=== PATIENT | female | born 1995 | race Two or more races ===

== ENCOUNTER 2025-03-24 12:23 | Emergency (ER) | payer MEDICAID, SELFPAY ==
[2025-03-24 13:02] VITALS: BP 131/83; PULSE 81; RESP 18; TEMP 37.2; O2SAT 100; BMI 32.9
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
[2025-03-24 13:28] LABS: HCG Qualitative,Urine Negative
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
[2025-03-24 14:53] VITALS: BP 132/88; PULSE 76; RESP 18; TEMP 37.4; O2SAT 100
== END 2025-03-24 15:01 | disposition home or self-care (01) ==
PROVIDERS: Nurse Practitioner Primary Care; Emergency Provider Emergency Medicine; PCP Physician Assistant
DX: S13.4XXA Sprain of ligaments of cervical spine, initial encounter (principal); S39.012A Strain of muscle, fascia and tendon of lower back, initial encounter; V89.2XXA Person injured in unspecified motor-vehicle accident, traffic, initial encounter
CPT/HCPCS: 70450; 72125; 72131; 81025; 99284

== ENCOUNTER 2025-04-30 14:35 | Emergency (ER) | payer MEDICAID, SELFPAY ==
[2025-04-30 14:36] VITALS: BP 115/83; PULSE 100; RESP 18; TEMP 37.2; O2SAT 98; BMI 32.0
[2025-04-30 14:42] VITALS: PULSE 100; RESP 17; O2SAT 98; BMI 32.0
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
[2025-04-30 15:44] LABS: Basophils % (Auto) 0 % (0-2.5); Eosinophils % (Auto) 1 % (0-10); Hematocrit 32.6 % (36.0-46.0); Hemoglobin 11.3 g/dL (12.0-16.0); Immature Granulocytes % (Auto) 0 % (0-0); Immature Granulocytes Auto 0.02 Thou/mm3 (0.00-0.00); Lymphocytes # (Auto) 0.8 Thou/mm3 (1.0-4.8); Lymphocytes % (Auto) 9 % (10-50); Mean Corpuscular HGB Conc 34.7 g/dl (31.0-37.0); Mean Corpuscular Hemoglobin 30.2 pg (25.0-35.0); Mean Corpuscular Volume 87 fL (80-100); Monocytes # (Auto) 0.6 Thou/mm3 (0.0-0.8); Monocytes % (Auto) 7 % (0-12); Neutrophils # (Auto) 6.8 Thou/mm3 (1.8-7.7); Neutrophils % (Auto) 83 % (37-80); Nucleated Red Blood Cell % 0 /100 WBC (0); Platelet Count 224 Thou/mm3 (140-440); RDW Standard Deviation 46.3 fL (36.4-46.3); Red Blood Count 3.74 Miln/mm3 (4.00-5.20); White Blood Count 8.2 Thou/mm3 (3.6-11.0)
[2025-04-30 16:05] LABS: Alanine Aminotransferase 17 U/L (10-49); Albumin, Serum 4.4 gm/dL (3.5-5.0); Albumin/Globulin Ratio 1.9 (1.2-2.2); Alcohol, Blood Medical < 3.0 mg/dL (0-10.0); Alkaline Phosphatase 64 U/L (46-116); Anion Gap 8 (7-16); Aspartate Amino Transferase 17 U/L (0-34); BUN/Creatinine Ratio 8 Ratio (12-20); Bilirubin,Total 0.6 mg/dL (0.3-1.2); Blood Urea Nitrogen < 5 mg/dL (9-23); C-Reactive Protein < 0.5 mg/dL (0.0-0.9); Calcium 8.9 mg/dL (8.3-10.6); Calcium (Corrected) 8.9 mg/dL (8.5-10.1); Carbon Dioxide 22.8 mMol/L (20.0-31.0); Chloride 109 mMol/L (98-107); Creatinine (Component) 0.6 mg/dL (0.6-1.3); Estimated Creatinine Clearance 133.8 mL/min (>60); Globulin 2.3 gm/dL (2.3-3.5); Glucose 108 mg/dL (74-106); Osmolality,Calculated 277 (275-295); Potassium 3.6 mMol/L (3.4-5.1); Sodium 140 mMol/L (136-145); Total Protein 6.7 gm/dL (5.7-8.2); eGFR > 60 See Note
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
[2025-04-30 16:41] VITALS: BP 141/89; PULSE 83; RESP 18; TEMP 36.9; O2SAT 98
[2025-04-30 16:41] LABS: Collection Type, Urine Clean Catch
[2025-04-30] MEDS: IBUPROFEN TAB 600 MG TABLET PO (16:43)
[2025-04-30 17:19] LABS: Bilirubin,Urine Negative (Negative); Blood,Urine 3+ (Negative); Color,Urine Light-Red (Lt Yel-Yel); Glucose, Urine Negative (Negative); Ketones,Urine 1+ (Negative); Leukocyte Esterase,Urine Positive (Negative); Nitrite,Urine Negative (Negative); Protein,Urine 2+ (Neg - Trace); RBC,Urine 1596 /hpf (0-3); Specific Gravity,Urine 1.007 (1.001-1.035); Squamous Epithelial Cell,Urine 10 /hpf (0-5); Urobilinogen,Urine Negative mg/dL (0.0-1.0); WBC,Urine 76 /hpf (0-5)
[2025-04-30 17:22] LABS: HCG Qualitative,Urine Negative
[2025-04-30 17:23] LABS: Clarity,Urine Hazy (Clear/Hazy)
[2025-04-30 17:26] LABS: Sed Rate (ESR) 13 mm/hr (0-20)
[2025-04-30 17:30] LABS: Amphetamine/Methamp Scrn,U Negative (Negative); Barbiturate Screen,Urine Negative (Negative); Benzodiazepines Screen,Urine Negative (Negative); Benzoylecgonine Screen, Ur Negative (Negative); Fentanyl Screen,Urine Negative (Negative); Opiate Screen,Urine Negative (Negative); THC Screen,Urine Positive (Negative)
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
[2025-04-30 18:14] VITALS: BP 111/90; PULSE 90; RESP 16; TEMP 36.9; O2SAT 99
--- NOTE | 2025-04-30 18:42 | PD.EDADDENDU ---
Emergency Room Addendum <Tiff Moreira - Last Filed: 04/30/25 21:32> Addendum Narrative: I took over the care from Dr. Malin at 6 PM on 04/30/2025, see his notes for complete H&P and ED course. I was asked to take over this patient pending 5150 psychiatric placement. Patient was accepted to [facility] by Dr. Hampton. <Kurtis Toscano MD - Last Filed: 04/30/25 22:00> Addendum Narrative: I took over the care from Dr. Malin at 6 PM on 04/30/2025, see his notes for complete H&P and ED course. I was asked to take over this patient pending 5150 psychiatric placement. Patient was accepted to [facility] by Dr. Hampton. During my watch, the patient remained stable. Kurtis Toscano MD
--- NOTE | 2025-04-30 20:38 | PC.NURSE ---
NURSE TO NURSE REPORT VIA TELEPHONE TO DELTA WATERS FROM [facility]
[2025-04-30 23:17] VITALS: BP 114/71; PULSE 81; RESP 16; O2SAT 98
[2025-04-30 23:50] VITALS: BP 114/71; PULSE 97; RESP 18; TEMP 36.9; O2SAT 98
[2025-05-01] MEDS: NITROFURANTOIN MACRO 100 MG CAPSULE PO (00:22)
== END 2025-05-01 00:42 ==
PROVIDERS: Emergency Medicine; Emergency Provider Emergency Medicine
DX: Z04.6 Encounter for general psychiatric examination, requested by authority (principal); F29 Unspecified psychosis not due to a substance or known physiological condition; F31.9 Bipolar disorder, unspecified; M25.522 Pain in left elbow; Z75.1 Person awaiting admission to adequate facility elsewhere
CPT/HCPCS: 36415; 73070; 80053; 80307; 80320; 81001; 81025; 85025; 85652; 86140; 96127; 99285; A9270; G0480